=== PATIENT | male | born 1945 | race Caucasian/White ===

== ENCOUNTER 2019-03-16 11:22 | Inpatient (IN) | payer BC ==
[2019-03-16] VITALS (380 sets, daily range): BP systolic 71–120; BP diastolic 37–61; PULSE 89–108; TEMP 94.3–98.8; O2SAT 52–100
[~2019-03-16] VITALS: Ht 180.3 cm; Wt 128.9 kg
--- NOTE | 2019-03-16 12:30 | NUR ---
PT RECEIVED INTUBATED A DIRECT ADMIT FROM [facility]. PT PLACED ON DOCUMENTED SETTINGS FOR INITIAL SETTINGS. ABG/CXR PENDING. OETT RESECURED WITH A HOLISTER 25 @ TEETH. ALARMS SET AND FUNCTIONING
[2019-03-16 12:52] LABS: ARTERIAL BLD GAS O2 SATURATION 99.4 % (92-100); ARTERIAL BLOOD GAS BASE EXCESS -8.8 (-2-2); ARTERIAL BLOOD GAS HCO3 17.8 meq/L (22-26); ARTERIAL BLOOD GAS PCO2 40.5 mmHg (35-45); ARTERIAL BLOOD GAS pH 7.26 (7.35-7.45)
[2019-03-16 12:53] LABS: ARTERIAL BLOOD GAS PO2 343.4 mmHg (80-100)
--- NOTE | 2019-03-16 13:15 | NUR ---
INCREASED VT AT THIS ALONG WITH RR PER DR. NGUYEN AT BEDSIDE. NO OTHER CHANGES AT THIS TIME.
--- NOTE | 2019-03-16 13:40 | NUR ---
Report received from [facility] and pt received via stretcher to ICU 7. Pt moved to bed. Dr Starr, Dr Sky, RT, and AIVS all at bedside. Assessment complete. OG placed and after confirmation was placed. Pt on vent per Dr Starr's settings. Anesthesia called and right radial art line placed. Levophed to start for SBP < 90 or MAP < 65. Temp mukherjee placed. Dr Sky, Dr Starr, and myself spoke with pt's children regarding status update and plan of care. Questions answered and support provided. Will continue to follow.
[2019-03-16 13:44] LABS: HEMOGLOBIN 11.4 g/dl (13.5-18.0); MEAN CELL VOLUME 94 fl (80.0-100.0); MEAN CORPUSCULAR HEMOGLOBIN 30 pg (27.0-31.0); MEAN CORPUSCULAR HGB CONC 32 g/dl (33.0-37.0); MEAN PLATELET VOLUME 11.8 fl (7.4-10.4); PLATELET COUNT 168 K/mm3 (130-400); RED BLOOD COUNT 3.81 M/mm3 (4.20-5.60); REDCELL DISTRIBUTION WIDTH-CV 15.3 % (11.5-14.5)
[2019-03-16 13:47] LABS: HEMATOCRIT 35.7 % (42.0-52.0)
[2019-03-16 13:54] LABS: ALBUMIN 3.6 gm/dL (3.5-5.0); CALCIUM 8.2 mg/dL (8.4-10.2); CREATININE, serum 2.54 (0.66-1.25); MAGNESIUM 1.9 mg/dL (1.6-2.3); PHOSPHOROUS 7.3 mg/dL (2.5-4.5); POTASSIUM 4.2 mmol/L (3.4-5.0); TOTAL PROTEIN 7.2 gm/dL (6.4-8.2)
[2019-03-16 14:05] LABS: TROPONIN-I 0.022 ng/mL (0.000-0.035)
[2019-03-16 14:11] LABS: ANISOCYTOSIS 1+; HYPOCHROMIA 2+; LYMPHOCYTE 7 % (20.0-51.0); NEUTROPHILS 83 % (42.0-75.2); PLATELET ESTIMATE NORMAL (NORMAL)
[2019-03-16 14:24] LABS: MUCOUS Present /lpf; PH 5 (5-8); SQUAMOUS EPITHELIAL 0-2 /hpf; URINE APPEARANCE Hazy; URINE BACTERIA Rare /hpf; URINE BILIRUBIN Negative (NEGATIVE); URINE BLOOD Negative (NEGATIVE); URINE COLOR Yellow; URINE GLUCOSE Negative (NEGATIVE); URINE KETONE Negative (NEGATIVE); URINE LEUKOCYTE ESTERASE Negative (NEGATIVE); URINE NITRATE Negative (NEGATIVE); URINE PROTEIN(semi-quant) 2+ (NEGATIVE); URINE RBC 0-2 /hpf; URINE UROBILINOGEN Negative (NEGATIVE)
[2019-03-16 15:30] LABS: COLLECTION METHOD CLEAN CATCH
--- NOTE | 2019-03-16 15:40 | NUR ---
Dr Raman and Dr Beaver notified of consults.
[2019-03-16] MEDS ORDERED: ASPIRIN E.C. 8181 MG PO (15:58)
[2019-03-16] MEDS ORDERED: VITAMIN D 1001000 IU PO (15:59)
[2019-03-16] MEDS ORDERED: COLACE 100100 MG/CAP PO (16:00)
[2019-03-16] MEDS ORDERED: DIGITEK0.125 MG PO (16:03)
[2019-03-16] MEDS ORDERED: PRINIVIL2.5 MG PO (16:03)
[2019-03-16] MEDS ORDERED: LACRI-LUBE1 OIN OU (16:07)
[2019-03-16] MEDS ORDERED: TOPROL XL 25MG25 MG PO (16:08)
[2019-03-16] MEDS ORDERED: MIRALAX PA17 GM/Dose PO (16:09)
[2019-03-16] MEDS ORDERED: MULTI VITAMINS1 TAB PO (16:10)
[2019-03-16] MEDS ORDERED: K-DUR20 MEQ PO (16:11)
--- NOTE | 2019-03-16 16:11 | NUR ---
Vancomycin Initial Dosing Pharmacy Note Ordering provider: Mio Sky DO Indication/duration: Relevant comorbidities: LABS: est CrCl 34 mL/min Recommendation: 1.5 g IV q24h, follow daily serum creatinine and will follow up with vancomycin trough Loading dose: 1.5 grams Maintenance dose: 1.5 grams every 24 hours Trough goal: 10-15 ug/mL
[2019-03-16] MEDS ORDERED: ZOLOFT 50MG50 MG PO (16:12)
[2019-03-16] MEDS ORDERED: ALDACTONE 25MG25 M1 PO (16:13)
[2019-03-16] MEDS ORDERED: PEPCID 20MG TAB20 MG PO (16:14)
[2019-03-16] MEDS ORDERED: ASMANEX TW0.22 MG/A1 IH (16:14)
[2019-03-16] MEDS ORDERED: LEADER EYE ITCH5 ML OP (16:18)
[2019-03-16] MEDS ORDERED: LASIX 20MG TABL20 MG PO (16:19)
[2019-03-16] MEDS ORDERED: DEMADEX 20MG20 M1 PO (16:21)
[2019-03-16] MEDS ORDERED: NEURONTIN100 MG/CAP PO (16:22)
[2019-03-16] MEDS ORDERED: TYLENOL 500MG500 MG PO (16:23)
[2019-03-16] MEDS ORDERED: PROAIR HFA0.09 MG/AC IH (16:26)
[2019-03-16] MEDS ORDERED: DULCOLAX S10 MG/SUPP RC (16:26)
[2019-03-16] MEDS ORDERED: MILK OF MA400 MG/52 PO (16:28)
[2019-03-16] MEDS ORDERED: MELAT3MGTAB PO (16:28)
[2019-03-16] MEDS ORDERED: ZOFRAN 4MG T4 MG/TAB PO (16:29)
[2019-03-16] MEDS ORDERED: LANTUS100 U/ML SQ (16:31)
[2019-03-16] MEDS ORDERED: BETADINE TP (16:32)
[2019-03-16] MEDS ORDERED: BACTRIM DS 8001 TAB PO (16:32)
[2019-03-16] MEDS ORDERED: NOVLOG SQ (16:34)
--- NOTE | 2019-03-16 17:10 | NUR ---
Dobumatime started at set rate per Dr Raman orders.
[2019-03-16 17:19] LABS: ARTERIAL BLD GAS O2 SATURATION 96.8 % (92-100); ARTERIAL BLD GAS TCO2 CT 18.9; ARTERIAL BLOOD GAS BASE EXCESS -5.8 (-2-2); ARTERIAL BLOOD GAS PCO2 30.5 mmHg (35-45); ARTERIAL BLOOD GAS PO2 95.8 mmHg (80-100); ARTERIAL BLOOD GAS pH 7.39 (7.35-7.45)
--- NOTE | 2019-03-16 17:31 | NUR ---
Rate change made on levophed per weight adjustment.
--- NOTE | 2019-03-16 18:05 | NUR ---
Arterial line wave form was dampened. Entered room for troubleshooting and when stated pt's name, he opened his eyes. Asked pt to open eyes real big, shut, and open again. Pt followed. Asked pt to squeeze my hands and again followed commands with both sides. Asked pt is he was in pain. Shook head no. Explained to pt what had happened and where he was at. Nods he understands. Dr Starr and family updated on changes. Will continue to follow.
--- NOTE | 2019-03-16 19:37 | NUR ---
Report given to Anna REYNA and care transfered.
--- NOTE | 2019-03-16 19:40 | NUR ---
Bedside report received from AXEL Johnson. All lines, tubes, wounds, and medications reviewed. Transfer of care at this time.
--- NOTE | 2019-03-16 19:45 | NUR ---
Patient resting comfortably on the vent. No signs of pain or distress. Patient opens eyes to name and follows commands like squeezing his hands. Patient responds appropriately to yes and no questions. When asked if he is in pain, patient shakes head no. Assessment complete. Patients lungs are clear with diminished bases, he is only having a small amount of secretions when suctioned. HR and rhythm are irregular, normal S1 and S2 heard. Patient is in afib, but appears rate controlled between 80-110bpm. Bowel ssounds are active. Patient is very edematous from the nipple line down. BUE are +2, Hands +3, BLE +3, and scrotum +2. Patient's skin is mottled from the neck up and the knees down. Ears are dark purple is color. Patients legs are cold to the touch. Patient is cool and moist all over as he is weeping from the edema. Patient has open ulcers to his lower legs and feet bilaterally. They are clean with no drainage noted. Patient has scratcches, bruises, and skin tears all over his BUE with varying sizes and locations. Some skin tears are bleeding, others are leaking serous fluids, one large one on right forarm is bandaged and shadowing is seen on the dressing. Patient has multiple abrasions to the top and back of his head, they are scabbed over, but leaking serosanguinous fluid. 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 Patients groin is excoriated and painful to the touch, patient jumps when this area is touched. Patient's pulses are +1 in all extremities with pedal pulses very difficult to find with the right side being worse. Pupils are sluggish. All drips and lines checked and confirmed. Patient has no further needs at this time. Will continue to monitor. Call light within reach.
[2019-03-17] VITALS (735 sets, daily range): BP systolic 83–135; BP diastolic 44–88; PULSE 80–112; TEMP 98.4–98.8; O2SAT 58–100
--- NOTE | 2019-03-17 | NUR ---
Patient resting comfortably on the vent, patient denies any pain. Patient continues to follow commands and responds appropriately to yes/no questions. Assessment complete. No changes from previous exam except that mottling is decreasing and is not as high on his legs. Ears have turned to a more normal red color and are warm to the touch. Patient's vitals have been stable. No further needs at this time. Will continue to monitor.
--- NOTE | 2019-03-17 04:00 | NUR ---
Patient continues to rest comfortably on the vent. Sedation was increased at 0230 for patient comfort and appropriate sedation. He is a little more sleepy than previous exam, but is still responding appropriately and following commands. Assessment complete. Patients mottling has continued to improve and is only present from the ankles down. All other findings remain the same as previous exams. Will continue to monitor.
--- NOTE | 2019-03-17 05:00 | NUR ---
Patient started on sedation vacation at this time. Propofol and fentanyl decreased by half.
[2019-03-17 05:03] LABS: ARTERIAL BLD GAS O2 SATURATION 97.5 % (92-100); ARTERIAL BLD GAS TCO2 CT 18.9; ARTERIAL BLOOD GAS BASE EXCESS -2.7 (-2-2); ARTERIAL BLOOD GAS HCO3 18.3 meq/L (22-26); ARTERIAL BLOOD GAS PO2 101.8 mmHg (80-100); ARTERIAL BLOOD GAS pH 7.53 (7.35-7.45)
[2019-03-17 05:04] LABS: ARTERIAL BLOOD GAS PCO2 22.2 mmHg (35-45)
[2019-03-17 05:31] LABS: BASO # 0.1 (0.0-0.2); BASO % 0.7 % (0.0-2.0); EOS # 0.1 (0.0-0.7); EOS % 1.2 % (0-4.0); GRAN # 6.6 (1.4-6.5); GRAN % 76.5 % (42.2-75.2); HEMATOCRIT 29.4 % (42.0-52.0); LYMPH % 12.1 % (20.0-51.0); MEAN CELL VOLUME 89 fl (80.0-100.0); MEAN CORPUSCULAR HEMOGLOBIN 30 pg (27.0-31.0); MEAN CORPUSCULAR HGB CONC 34 g/dl (33.0-37.0); MEAN PLATELET VOLUME 11.5 fl (7.4-10.4); MONO # 0.8 (0.1-0.6); MONO % 8.9 % (1.7-9.3); PLATELET COUNT 135 K/mm3 (130-400); REDCELL DISTRIBUTION WIDTH-CV 15.4 % (11.5-14.5)
[2019-03-17 05:41] LABS: ALBUMIN 2.8 gm/dL (3.5-5.0); BILIRUBIN,TOTAL 0.7 mg/dL (0.0-1.0); CALCIUM 7.6 mg/dL (8.4-10.2); CREATININE, serum 2.57 (0.66-1.25); MAGNESIUM 1.6 mg/dL (1.6-2.3); PHOSPHOROUS 4.7 mg/dL (2.5-4.5); POTASSIUM 4.5 mmol/L (3.4-5.0); TOTAL PROTEIN 6.1 gm/dL (6.4-8.2)
[2019-03-17 06:01] LABS: CREATININE, serum 2.57 (0.66-1.25)
[2019-03-17 06:04] LABS: URINE PROTEIN:CREAT RATIO 2.45 (0.00-0.14)
[2019-03-17 06:17] LABS: FRACTIONAL EXCRETION OF NA+ 2.6 %
--- NOTE | 2019-03-17 06:17 | NUR ---
@ 0505 CALLED [facility] ABOUT PTS ABG RESULTS, WITH A LOW CO2. [facility] CALLED WITH NEW ORDERS AND VENT CHANGES WERE DONE AT 0530, RATE FROM 22 TO 16, FI02 FROM 40% TO 35%.
--- NOTE | 2019-03-17 07:00 | NUR ---
Dobutamine gtt infusing through peripheral left anticubital IV - MD Matty in room and aware - gtt paused/discontinued per MD Matty Left anticubital IV site without complications
--- NOTE | 2019-03-17 07:25 | NUR ---
patient's propofol and fentanyl stopped at this time per Dr. Starr to prepare for possible extubation.
--- NOTE | 2019-03-17 07:27 | NUR ---
All sedation off per EZRA Starr MD who's at bedside. RT at bedside as well All linens changed at this time and pt turned Pt Alert to simuli, following commands. When pt asked how he is doing - pt shakes head back and forth nonverbal communication its ascertained that pt thinks he is not doing well. Education provided on discontinued sedation in attempt to extubate - pt nods head in agreement No family present at this time
--- NOTE | 2019-03-17 07:30 | NUR ---
Bedside report given to AXEL Fournier. All Lines, medications, and tubes confirmed. Transfer of care at this time.
[2019-03-17 08:46] LABS: ARTERIAL BLD GAS O2 SATURATION 95.7 % (92-100); ARTERIAL BLOOD GAS BASE EXCESS -4.1 (-2-2); ARTERIAL BLOOD GAS HCO3 19.1 meq/L (22-26); ARTERIAL BLOOD GAS PCO2 29.7 mmHg (35-45); ARTERIAL BLOOD GAS PO2 84.4 mmHg (80-100); ARTERIAL BLOOD GAS pH 7.43 (7.35-7.45)
--- NOTE | 2019-03-17 08:55 | NUR ---
Pt extubated to Oxymask at 5L/min - pt tolerated well Pt AOx3
--- NOTE | 2019-03-17 10:46 | NUR ---
PT EXTUBATED TO A OXYMASK AT 5L O2 ORDERED BY DR HEARD. PT SUCTIONED VIA ETT AND HUMAN RESOURCE ADVISOR SUCTIONED PRE EXTUBATION. LITTLE PROCEDURE WELL. BLBS CLEAR AND EQUAL. NO STRIDOR NOTED. PT ABLE TO SPEAK. VSS AT HR 94 RR 18 SPO2 100%. NO DISTRESS NOTED AT THIS TIME.
--- NOTE | 2019-03-17 11:57 | NUR ---
CARLA met with the patient and patient's son, Rodrigo (ph#[phone]), to discuss discharge plan. The patient lives in [place], but has been residing at [facility] for a skilled stay. The patient and his son could not recall his PCP's name, but report that he receives primary care at the [facility] and he is apart of the [employer]. The patient does not have advanced directives in EMR, but his son reports that the patient does have them completed. He states that [facility] should have a copy and that him and his sister, Gila, are the patient's DPOA-HC. The patient's son reports that the plan is for the patient to return back to [facility] upon discharge. He states that him and his sister are considering transfering the patient to a [facility] contracted facility in [place] in the future. CARLA presented and explained the Patient Choice Form to the patient's son. The patient's son verbalized understanding, signed, and he was provided a copy. CARLA contacted and faxed updates to Wendy at [facility]. CARLA also requested a copy of his DPOA-HC. Wendy reports that she will fax a copy to the hospital. CARLA to continue to follow to ensure a safe discharge.
--- NOTE | 2019-03-17 20:00 | NUR ---
PATIENT ASSESSED, VITALS STABLE. WILL CONTINUE TO MONITOR.
[2019-03-18] VITALS (811 sets, daily range): BP systolic 99–122; BP diastolic 59–85; PULSE 99–139; TEMP 97.7–98.9; O2SAT 63–100
--- NOTE | 2019-03-18 02:40 | NUR ---
DOBUTAMINE DECREASED PER ORDERS FROM DR. STAPLES DUE TO TACHYCARDIA.
[2019-03-18 05:10] LABS: ARTERIAL BLD GAS O2 SATURATION 52.9 % (92-100); ARTERIAL BLD GAS TCO2 CT 25.6; ARTERIAL BLOOD GAS BASE EXCESS -0.6 (-2-2); ARTERIAL BLOOD GAS HCO3 24.3 meq/L (22-26); ARTERIAL BLOOD GAS PCO2 40.9 mmHg (35-45); ARTERIAL BLOOD GAS pH 7.39 (7.35-7.45)
[2019-03-18 05:16] LABS: ARTERIAL BLOOD GAS PO2 29.8 mmHg (80-100)
[2019-03-18 05:28] LABS: BASO % 0.7 % (0.0-2.0); EOS # 0.1 (0.0-0.7); EOS % 2.2 % (0-4.0); GRAN # 4.5 (1.4-6.5); GRAN % 77.7 % (42.2-75.2); LYMPH # 0.6 (1.2-3.4); LYMPH % 9.8 % (20.0-51.0); MEAN CELL VOLUME 90 fl (80.0-100.0); MEAN CORPUSCULAR HGB CONC 33 g/dl (33.0-37.0); MEAN PLATELET VOLUME 11.3 fl (7.4-10.4); MONO # 0.5 (0.1-0.6); MONO % 9.1 % (1.7-9.3); PLATELET COUNT 76 K/mm3 (130-400); RED BLOOD COUNT 3.11 M/mm3 (4.20-5.60); REDCELL DISTRIBUTION WIDTH-CV 15.7 % (11.5-14.5)
[2019-03-18 05:30] LABS: HEMOGLOBIN 9.1 g/dl (13.5-18.0); MEAN CORPUSCULAR HEMOGLOBIN 29 pg (27.0-31.0)
[2019-03-18 05:42] LABS: CALCIUM 8.4 mg/dL (8.4-10.2); CREATININE, serum 2.95 (0.66-1.25); MAGNESIUM 2.1 mg/dL (1.6-2.3); POTASSIUM 4.3 mmol/L (3.4-5.0)
[2019-03-18 05:54] LABS: ARTERIAL BLD GAS TCO2 CT 22.6; ARTERIAL BLOOD GAS BASE EXCESS -2.3 (-2-2); ARTERIAL BLOOD GAS HCO3 21.6 meq/L (22-26); ARTERIAL BLOOD GAS PCO2 33.8 mmHg (35-45); ARTERIAL BLOOD GAS PO2 98.4 mmHg (80-100); ARTERIAL BLOOD GAS pH 7.42 (7.35-7.45)
[2019-03-18 10:24] LABS: INR 1.3 (0.8-3.0); PROTHROMBIN TIME 15.4 SECONDS (9.7-12.8)
--- NOTE | 2019-03-18 21:00 | NUR ---
Patient assessed, vitals stable. Complaining of sternal and stomach pain, states he has had it all day. RN offered tylenol when he's able to have it, patient accepted. Will continue to monitor.
[2019-03-19] VITALS (533 sets, daily range): BP systolic 92–129; BP diastolic 57–97; PULSE 102–126; TEMP 97.8–98.8; O2SAT 78–100
[2019-03-19 05:23] LABS: MEAN CELL VOLUME 91 fl (80.0-100.0); MEAN CORPUSCULAR HEMOGLOBIN 30 pg (27.0-31.0); MEAN CORPUSCULAR HGB CONC 33 g/dl (33.0-37.0); MEAN PLATELET VOLUME 11.4 fl (7.4-10.4); PLATELET COUNT 72 K/mm3 (130-400); RED BLOOD COUNT 3.35 M/mm3 (4.20-5.60); REDCELL DISTRIBUTION WIDTH-CV 15.5 % (11.5-14.5)
[2019-03-19 05:27] LABS: ARTERIAL BLD GAS O2 SATURATION 97.4 % (92-100); ARTERIAL BLD GAS TCO2 CT 24.7; ARTERIAL BLOOD GAS BASE EXCESS -0.5 (-2-2); ARTERIAL BLOOD GAS HCO3 23.6 meq/L (22-26); ARTERIAL BLOOD GAS PCO2 36.9 mmHg (35-45); ARTERIAL BLOOD GAS PO2 102.6 mmHg (80-100); ARTERIAL BLOOD GAS pH 7.42 (7.35-7.45)
[2019-03-19 05:31] LABS: INR 1.2 (0.8-3.0); PROTHROMBIN TIME 14.6 SECONDS (9.7-12.8)
[2019-03-19 05:32] LABS: HEMATOCRIT 30.5 % (42.0-52.0)
[2019-03-19 05:40] LABS: ALBUMIN 3.2 gm/dL (3.5-5.0); CALCIUM 8.3 mg/dL (8.4-10.2); CREATININE, serum 2.44 (0.66-1.25); MAGNESIUM 2.1 mg/dL (1.6-2.3); PHOSPHOROUS 4.1 mg/dL (2.5-4.5); POTASSIUM 4.1 mmol/L (3.4-5.0); TOTAL PROTEIN 6.7 gm/dL (6.4-8.2)
[2019-03-19 05:47] LABS: BAND 1 % (0-10); EOSINOPHIL 2 % (0-4); LYMPHOCYTE 6 % (20.0-51.0); NEUTROPHILS 82 % (42.0-75.2); PLATELET ESTIMATE DECREASED (NORMAL)
--- NOTE | 2019-03-19 08:30 | NUR ---
Pt AAOx2 - much more confused than yesterday. Pt no longer remembers situation and location - yesterday pt was oriented Pt's son at bedside expressing concern for sudden confusion Pt is able to correctly identify son by name and that he is his son Pt c/o abdominal pain/tightness - on assessment abdomen distended/baseline, soft/moderate on palpation, fluid/edema presnent, pt belching without relief - tums/zofran/fentanyl provided In past 36hrs pt has had 7 moderate-large sized bowelmovements
--- NOTE | 2019-03-19 13:00 | NUR ---
Report phoned to AXEL Whittington - questions invited and answered Pt transfered to Medical bed via slideboard then transported to medical 312 with TRINY'stan Welch on O2 via NC without complications
--- NOTE | 2019-03-19 19:45 | NUR ---
Initial shift assessment done- Tele on afib, rate variable 116-130, pt states in pain- abd pain /, will give fentanyl IV as ordered to see if can get pt comfortable-open area to right heel coverd with heel pad and cushion boots put on patient, repositioned, pt remains confused but pleasant.
--- NOTE | 2019-03-19 19:54 | NUR ---
Pt arrived to medical floor room 312 by AXEL Fournier and Shi Carroll at 1330. Pt on 2L NC. Resting in bed most of afternoon. Pt refused food this afternoon. C/o of abdominal pain, feeling bloated. Pt had one episode of nause, zofran administered. Pt had minimal brown emesis. Pt apologized a bunch of times. per patient "might be from milk". Was reported he had a milkshake at some point. Pt has scattered bruising, scabs, skin tears noted on BLE and BUE. RFA wrapped with kerlex covering skin tear. LUE wrapped with samy bandage covering skin tear. Top of head has multiple scabs. Generalized edema noted all over. Abdomen is firm. BLE noted to have erythema, dry, scaling. Pedal pulses difficult to palpate. Scrotum noted to have swelling and some wheeping. Pt has RADHA PICC, flushes well with good blood return. Bailey in place draining yellow urine, no kinks.Pt voices no other concerns at this time. Call light within reach, bed alarm on.
--- NOTE | 2019-03-19 21:45 | NUR ---
Tel remains afib, rate still 110-130,s--Dr Parker informed of rate- states to continue to monitor and let cardiology know in the morning-
--- NOTE | 2019-03-19 22:00 | NUR ---
Vomited moderate amount of brown emesis all over gown- cleaned up, new sheets, gown, and dressing changed to R/FA skin tear-- also new samy wrap to PICC line. Has significant scrotal edema- elevated on towel
[2019-03-20 04:00] VITALS: BP 102/53; BP 86/34; PULSE 109; TEMP 98.9
--- NOTE | 2019-03-20 06:10 | NUR ---
Has had 3-4 small brown emesis during the shift- nauseated,, given Zofran at this time- did have Compazine earlier in the shift. Did not sleep much, on 3L/nc, tele afib 108-120,s-
[2019-03-20 06:18] LABS: BASO # 0.1 (0.0-0.2); BASO % 0.5 % (0.0-2.0); EOS # 0.1 (0.0-0.7); GRAN # 10.6 (1.4-6.5); GRAN % 83.9 % (42.2-75.2); HEMOGLOBIN 10.9 g/dl (13.5-18.0); LYMPH # 0.6 (1.2-3.4); MEAN CELL VOLUME 92 fl (80.0-100.0); MEAN CORPUSCULAR HEMOGLOBIN 30 pg (27.0-31.0); MEAN CORPUSCULAR HGB CONC 32 g/dl (33.0-37.0); MEAN PLATELET VOLUME 11.6 fl (7.4-10.4); MONO # 1.2 (0.1-0.6); MONO % 9.2 % (1.7-9.3); PLATELET COUNT 113 K/mm3 (130-400); RED BLOOD COUNT 3.66 M/mm3 (4.20-5.60); REDCELL DISTRIBUTION WIDTH-CV 15.8 % (11.5-14.5)
[2019-03-20 06:20] LABS: HEMATOCRIT 33.6 % (42.0-52.0)
[2019-03-20 06:28] LABS: ALBUMIN 3.2 gm/dL (3.5-5.0); BILIRUBIN,TOTAL 1.7 mg/dL (0.0-1.0); CALCIUM 8.6 mg/dL (8.4-10.2); CREATININE, serum 1.85 (0.66-1.25); MAGNESIUM 2.1 mg/dL (1.6-2.3); POTASSIUM 4.3 mmol/L (3.4-5.0); TOTAL PROTEIN 6.7 gm/dL (6.4-8.2)
[2019-03-20 06:47] LABS: INR 1.2 (0.8-3.0); PROTHROMBIN TIME 14.3 SECONDS (9.7-12.8)
[2019-03-20 08:00] VITALS: BP 107/63; PULSE 125
[2019-03-20 11:17] VITALS: BP 116/62; PULSE 128; TEMP 97.8
[2019-03-20 15:41] VITALS: BP 103/55; PULSE 118; TEMP 98.4
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
[2019-03-20 20:00] VITALS: BP 111/76; PULSE 108; TEMP 98.4
--- NOTE | 2019-03-20 20:30 | NUR ---
Initial shift assessment done- alert/confused, pleasant, denies pain, denies nausea at this time, resting calmly in bed- repositioned, did have very small amount of liquid green stool- cleaned up- o2 at 2L/nc, tele on-afib, rate 108-130, stays mostly in 110-118. Continues with trunk, scrotal edema, generalized edema- Bailey with clear yellow urine
[2019-03-21 00:11] VITALS: BP 107/66; PULSE 124; TEMP 98
[2019-03-21 03:58] VITALS: BP 114/78; PULSE 86; TEMP 98.3
--- NOTE | 2019-03-21 05:29 | NUR ---
No emesis, denies nausea this shift- only had that small liquid stool at start of shift- no more throughout shift, seems more alert/still remains confused but asking more appropriate questions- "what happened to me, to end up in the hospital?", Tele remains afib but overall the rate better 90-120, stayed around 90-110 most the shift.
[2019-03-21 06:52] LABS: BASO # 0.1 (0.0-0.2); BASO % 0.5 % (0.0-2.0); EOS # 0.2 (0.0-0.7); EOS % 1.8 % (0-4.0); GRAN # 9.3 (1.4-6.5); GRAN % 82.9 % (42.2-75.2); HEMOGLOBIN 10.4 g/dl (13.5-18.0); LYMPH # 0.6 (1.2-3.4); LYMPH % 5.6 % (20.0-51.0); MEAN CELL VOLUME 94 fl (80.0-100.0); MEAN CORPUSCULAR HEMOGLOBIN 30 pg (27.0-31.0); MEAN CORPUSCULAR HGB CONC 32 g/dl (33.0-37.0); MEAN PLATELET VOLUME 12.1 fl (7.4-10.4); MONO % 8.8 % (1.7-9.3); PLATELET COUNT 99 K/mm3 (130-400); RED BLOOD COUNT 3.53 M/mm3 (4.20-5.60)
[2019-03-21 07:12] LABS: ALBUMIN 3.2 gm/dL (3.5-5.0); BILIRUBIN,TOTAL 1.3 mg/dL (0.0-1.0); CALCIUM 8.7 mg/dL (8.4-10.2); CREATININE, serum 1.7 (0.66-1.25); POTASSIUM 4.2 mmol/L (3.4-5.0); TOTAL PROTEIN 6.8 gm/dL (6.4-8.2)
[2019-03-21 07:19] VITALS: BP 103/66; PULSE 94; TEMP 98.3
[2019-03-21 11:31] VITALS: BP 102/56; PULSE 101; TEMP 97.7
--- NOTE | 2019-03-21 13:24 | NUR ---
Pt assessment completed and charted, morning medications administered per SEP. Pt alert and partially oriented. Pt oriented to name, year, president and place. Forgetful at times. Still trying to "understand situation". Pt up to chair with therapy. Pt used walker, heavy 2 assist, still unsteady on feet, only took a couple of steps. Pt denies abdominal pain. Pt has had no episodes of vomiting. RADHA PICC in place, flushing well with good blood return. Pt denies chest pain, states some dizziness when he stood. Generalized edema over lower extremities, abdomen, scrotum. Pt h as mukherjee in place draining shalom urine w/ sediment, no kinks in tubing. Jagruti care provided. No other concerns voiced at this time. Call light within reach.
[2019-03-21 16:00] VITALS: BP 114/79; PULSE 102; TEMP 97.8
--- NOTE | 2019-03-21 18:33 | NUR ---
Pt had better day. In and out of confusion. Pt got a little upset towards end of shift about who passed a few months ago. Son stopped in for visit. Pt tolerating foods and liquids well. No concerns voiced at this time.
[2019-03-21 19:47] VITALS: BP 88/47; PULSE 106; TEMP 98.3
--- NOTE | 2019-03-21 21:10 | NUR ---
Shift assessment complete. Pt resting in bed, awake, alert, oriented to person/ place c underlying confusion noted. Pt denies pain or other c/o. PICC noted to upper R arm, patent c good blood return. Pt denies needs at this time. Call light in reach, bed alarm on. Will continue to monitor.
[2019-03-22] VITALS (7 sets, daily range): BP systolic 116–124; BP diastolic 62–85; PULSE 71–137; TEMP 97.5–98.7
[2019-03-22 05:58] LABS: BASO # 0.1 (0.0-0.2); BASO % 0.7 % (0.0-2.0); EOS # 0.3 (0.0-0.7); GRAN # 8.7 (1.4-6.5); GRAN % 80.3 % (42.2-75.2); HEMOGLOBIN 10.2 g/dl (13.5-18.0); LYMPH # 0.8 (1.2-3.4); LYMPH % 6.9 % (20.0-51.0); MEAN CELL VOLUME 92 fl (80.0-100.0); MEAN CORPUSCULAR HEMOGLOBIN 30 pg (27.0-31.0); MEAN CORPUSCULAR HGB CONC 32 g/dl (33.0-37.0); MEAN PLATELET VOLUME 11.7 fl (7.4-10.4); MONO # 0.9 (0.1-0.6); MONO % 8.5 % (1.7-9.3); PLATELET COUNT 101 K/mm3 (130-400); RED BLOOD COUNT 3.41 M/mm3 (4.20-5.60); REDCELL DISTRIBUTION WIDTH-CV 15.9 % (11.5-14.5)
[2019-03-22 06:00] LABS: HEMATOCRIT 31.5 % (42.0-52.0)
[2019-03-22 06:09] LABS: CALCIUM 8.6 mg/dL (8.4-10.2); CREATININE, serum 1.69 (0.66-1.25); POTASSIUM 4.3 mmol/L (3.4-5.0)
--- NOTE | 2019-03-22 06:58 | NUR ---
Pt resting in bed, condition uchanged. Pt had an uneventfull night c very few needs. No needs at this time. Report given to Lacie REYNA to assume pt cares.
--- NOTE | 2019-03-22 08:30 | NUR ---
Assessment complete. Pt sitting up in bed, alert and oriented to person and city, unsure of current building and situation. Pt denies pain at this time. O2 at 2 L/min via NC. PICC line to right upper arm without s/s of complications. Abd distended. Taut edema across body including scrotum. Bailey catheter to DD with shalom urine with sediment noted. Scabbing to middle chest and top of head. Skin tear to right forearm with dressing CDI. No further needs reported. Call light in reach.
--- NOTE | 2019-03-22 14:19 | NUR ---
SW met with patient to follow up about discharge plan. Patient reports he will return to [facility] in [place]. CARLA contacted Maria Luisa from [facility] and faxed updates. CARLA will continue to follow.
--- NOTE | 2019-03-22 17:30 | NUR ---
Pt assisted to sit up in bed for supper, denies pain or needs. Pt's daughter just left and reports pt's confusion increasing at this time. Confusion has been intermittent throughtout the shift. Call light in reach. Bed alarm on.
--- NOTE | 2019-03-22 20:45 | NUR ---
Patient assessed at this time. Alert and oriented, with confusion. Easily redirected. Denies having pain and discomfort. Double lumen PICC to RUE, each lumen flushed. Site is without redness, warmth, swelling, and pain. Denies SOB and dyspnea. On oxygen at 2 L/min via NC. LS CTA upper lobes, diminished lower lobes. Heart with irregular rhythm. Telemetry in place. Capillary refill less than 3 seconds. Non-tenting skin turgor. BSAx4. Abdomen soft and non-tender. Catheter had been D/C'd on previous shift. Has been incontinent. Pericare provided by staff. Patient has multiple scabs to top of head, and BUE. Skin tears to right foream-dressing CDI, and right hand, CARRIAGE DOGGER. Vacular like ulcers to right beauchamp (two), and one to left 2nd toe. BLE scaling/flaking. Mepilex to right heel CDI. Coccyx reddened, but blanchable. 2+ edema to BUE and BLE. Generalized edema. Edema to genetalia. Voices no questions, needs, or concerns at this time. Call light is within reach.
[2019-03-23] VITALS (10 sets, daily range): BP systolic 100–118; BP diastolic 55–79; PULSE 81–115; TEMP 97.4–98.1
--- NOTE | 2019-03-23 04:23 | NUR ---
Patient has been resting in bed with eyes closed. Staff provides changing, joanne care, and repositioning. Has been NPO since midnight. Voices no questions, needs, or concerns at this time. Call light is within reach.
[2019-03-23 06:49] LABS: BASO # 0.1 (0.0-0.2); BASO % 0.7 % (0.0-2.0); EOS # 0.3 (0.0-0.7); EOS % 3.5 % (0-4.0); GRAN # 6.5 (1.4-6.5); GRAN % 77.2 % (42.2-75.2); HEMATOCRIT 31.1 % (42.0-52.0); HEMOGLOBIN 9.9 g/dl (13.5-18.0); LYMPH # 0.7 (1.2-3.4); LYMPH % 8.7 % (20.0-51.0); MEAN CELL VOLUME 93 fl (80.0-100.0); MEAN CORPUSCULAR HEMOGLOBIN 30 pg (27.0-31.0); MEAN CORPUSCULAR HGB CONC 32 g/dl (33.0-37.0); MEAN PLATELET VOLUME 12.3 fl (7.4-10.4); MONO # 0.8 (0.1-0.6); MONO % 9.3 % (1.7-9.3); PLATELET COUNT 109 K/mm3 (130-400); RED BLOOD COUNT 3.33 M/mm3 (4.20-5.60); REDCELL DISTRIBUTION WIDTH-CV 15.9 % (11.5-14.5)
[2019-03-23 07:07] LABS: CALCIUM 8.6 mg/dL (8.4-10.2); CREATININE, serum 1.58 (0.66-1.25); POTASSIUM 4.4 mmol/L (3.4-5.0)
--- NOTE | 2019-03-23 08:00 | NUR ---
Assessment complete. Pt resting in bed, A&O x 2, answering some questions appropriately. Breath sounds with expiratory wheeze in upper lobes. O2 at 4 L/min via NC. Abd distended. Generalized taut edema including to scrotum. Pt reports tenderness in back to palpation. Scabbing to top of head and middle chest. Skin tear to right forearm with dressing CDI. PICC line to right upper arm without s/s of complications. Pt incontinent of large amount of urine, not wanting to roll to change linens. Pt assisted from bed to chair with assist x 3, shuffled gait, unable to bear weight for an extended time. No further needs reported. Call light in reach.
--- NOTE | 2019-03-23 08:35 | NUR ---
Pt assisted from recliner chair to WC with assist x 4 and walker, pt unsteady, not standing straight, able to shuffle feet slightly to get to WC. Pt to [facility] for testing.
--- NOTE | 2019-03-23 11:28 | NUR ---
CARLA spoke with hospitalists. Patient may discharge tomorrow back to [facility]. CARLA updated Maria Luisa from [facility] and will fax updates.
--- NOTE | 2019-03-23 12:30 | NUR ---
PICC intact right upper arm with sterile dressing change done with insertion site cleansed with chloraprep x 1, chlorhexidine impregnated disk applied, skin prep, stat lock, and tegaderm applied. no signs or symptoms of IV complications noted. no concerns voiced. re-wrapped with samy to protect catheter.
--- NOTE | 2019-03-23 19:19 | NUR ---
Pt assisted from chair to bed with assist x 3. Pt had large amount of incontinent urine, cleansed and linens changed. Pt has been very sleepy this afternoon, not alert enough to eat or drink until this evening. Spoke with pt's son for consent for the heart cath tomorrow. No further needs reported. Call light in reach.
--- NOTE | 2019-03-23 19:40 | NUR ---
Patient assessed at this time. Alert and oriented with confusion on situation. Easily redirected, but forgetful. Denies having pain and discomfort. Double lumen PICC to right upper arm. Flushed. Site is without redness, warmth, swelling, and pain. Complains of SOB with exertion. On oxygen at 4 L/min via NC. LS CTA upper lobes, diminished lower lobes. Heart rate irregular. Telemetry in place. Capillary refill less than 3 seconds. Non-tenting skin turgor. BSAx4. Abdomen soft and non-tender. 2+ edema BLE and BUE. Generalized edema, and edema to genetalia. Incontinent of urine, and staff provides check, change, joanne care, and repositioning during rounds. Multiple skin issues: Sacrum red, but blanchable; BLE, heels, and feet scaling/flaking; venous ulcers to right beauchamp and left 2nd toe; skin tears to right forearm and right hand; abrasion to chest. Denies pain and discomfort to areas. Reminded of being NPO after midnight for heart cath tomorrow. Voices understanding. Voices no other questions, needs, or concerns at this time. Call light is within reach.
[2019-03-24] VITALS (131 sets, daily range): BP systolic 76–122; BP diastolic 48–80; PULSE 68–136; TEMP 97–97.7; O2SAT 58–100
[2019-03-24 06:24] LABS: BASO # 0.1 (0.0-0.2); BASO % 0.7 % (0.0-2.0); EOS # 0.3 (0.0-0.7); EOS % 3.6 % (0-4.0); GRAN # 6.8 (1.4-6.5); GRAN % 78.3 % (42.2-75.2); HEMOGLOBIN 10.2 g/dl (13.5-18.0); LYMPH # 0.6 (1.2-3.4); LYMPH % 7.1 % (20.0-51.0); MEAN CELL VOLUME 93 fl (80.0-100.0); MEAN CORPUSCULAR HEMOGLOBIN 30 pg (27.0-31.0); MEAN CORPUSCULAR HGB CONC 32 g/dl (33.0-37.0); MEAN PLATELET VOLUME 11.5 fl (7.4-10.4); MONO # 0.8 (0.1-0.6); MONO % 9.4 % (1.7-9.3); PLATELET COUNT 123 K/mm3 (130-400); RED BLOOD COUNT 3.46 M/mm3 (4.20-5.60); REDCELL DISTRIBUTION WIDTH-CV 15.9 % (11.5-14.5)
[2019-03-24 06:32] LABS: INR 1.2 (0.8-3.0)
[2019-03-24 06:34] LABS: PARTIAL THROMBOPLASTIN TIME 32.3 SECONDS (26.0-37.0)
[2019-03-24 06:36] LABS: CALCIUM 8.5 mg/dL (8.4-10.2); CREATININE, serum 1.49 (0.66-1.25); MAGNESIUM 1.9 mg/dL (1.6-2.3); POTASSIUM 4.3 mmol/L (3.4-5.0)
--- NOTE | 2019-03-24 07:14 | NUR ---
Patient has denied having pain and discomfort this shift. Staff has provided check, change, perineal hygiene care, and repositioning during rounds. Resting in bed with call light within reach.
--- NOTE | 2019-03-24 10:47 | NUR ---
SEE MERGE REPORT FOR MEDICATION ADMINISTRATION TIMES WELL INTRA/POST SEDATION ASSESMENTS. UNABLE TO PALPATE FEMORAL OR RADIAL PULSES. BP 70/46. DR WATT NOTIFIED AND OK TO PROCEED WITH [facility].
--- NOTE | 2019-03-24 11:45 | NUR ---
Pt transported via stretcher to ICU 6 with Zoll monitor and oxygen at 3L per Oxymask. Bedside report to Ayana REYNA. Groin site stable, distal pulses present per doppler.
--- NOTE | 2019-03-24 16:07 | NUR ---
Report called to Gema REYNA. Will transfer to medical floor
--- NOTE | 2019-03-24 16:45 | NUR ---
Patient recieved back from ICU after going there post cardiac cath, for low blood pressure. Patient warm and pink, pedal pulses with dopler, right groind dressing clean, dry and intact with no hematoma. Patient now on room air. IV fluids discontinued prior to arrival from ICU.
--- NOTE | 2019-03-24 20:10 | NUR ---
Patient assessed at this time. Alert and oriented to self. Easily reorients to time, place, and situation, but is easily forgetful. Only recalls bits and pieces of information. Double lumen PICC to RUE. Both lumens flushed. Site is without redness, warmth, swelling, and pain. Dressing to areas is CDI. Denies having pain and discomfort. Denies having SOB and dyspnea. Currently on room air. LS CTA. Respirations even and unlabored. Telemetry monitoring in place. Heart with irregular rate/rhythm. BSAx4. Abdomen soft and non-tender. Dressing to right groin site is CDI. Site is without redness, warmth, swelling, and pain. Doppler used for pedal pulses due to 3+ edema BLE. Voices no questions, needs, or concerns at this time. Resting in bed. Call light is within reach.
[2019-03-25] VITALS (9 sets, daily range): BP systolic 95–117; BP diastolic 48–89; PULSE 64–112; TEMP 97.7–98.9
--- NOTE | 2019-03-25 00:43 | NUR ---
During rounds, patient was incontinent of BM. Incontinent cares provided. Noted bleeding to coccyx area while cares were provided. Barrier cream applied. Repositioned off bottom.
--- NOTE | 2019-03-25 01:48 | NUR ---
Telemetry called and stated that patient's HR was going from 120s-140s. Notified IGNITION MECHANIC, who contacted. Dr. Lorenz. EKG obtained. New order received to give Lopressor 12.5mg. Given half a 25 mg tab Lopressor per orders.
--- NOTE | 2019-03-25 05:38 | NUR ---
After giving Metoprolol, patient's HR has been 90s-120s. Denies having pain and discomfort. Staff continues to check, change, and reposition. Jagruti care provided. No further bleeding noted to coccyx at this time. Dressing to heart cath site to right groin is CDI. Resting in bed with eyes closed at this time. Call light is within reach.
[2019-03-25 06:01] LABS: BASO # 0.1 (0.0-0.2); BASO % 0.6 % (0.0-2.0); EOS # 0.3 (0.0-0.7); EOS % 2.8 % (0-4.0); GRAN # 7.7 (1.4-6.5); GRAN % 79.4 % (42.2-75.2); HEMATOCRIT 32.2 % (42.0-52.0); HEMOGLOBIN 10.3 g/dl (13.5-18.0); LYMPH # 0.8 (1.2-3.4); LYMPH % 7.9 % (20.0-51.0); MEAN CELL VOLUME 91 fl (80.0-100.0); MEAN CORPUSCULAR HEMOGLOBIN 29 pg (27.0-31.0); MEAN CORPUSCULAR HGB CONC 32 g/dl (33.0-37.0); MEAN PLATELET VOLUME 11.4 fl (7.4-10.4); MONO # 0.8 (0.1-0.6); MONO % 8.6 % (1.7-9.3); PLATELET COUNT 159 K/mm3 (130-400); RED BLOOD COUNT 3.53 M/mm3 (4.20-5.60); REDCELL DISTRIBUTION WIDTH-CV 16.1 % (11.5-14.5)
[2019-03-25 06:14] LABS: CALCIUM 8.5 mg/dL (8.4-10.2); CREATININE, serum 1.35 (0.66-1.25); DIGOXIN 0.7 ng/mL (0.8-2.0); POTASSIUM 4.5 mmol/L (3.4-5.0)
--- NOTE | 2019-03-25 10:33 | NUR ---
Pt assessment complete. Pt is A/O x3 but has confusion the duration of my assessment. Pt denies any pain at this time, but is clearly uncomfortable when rolling in bed. Pt incontinent of urine and stool, pericare and linen change provided. Pt excoriated to groin, barrier cream applied. 1L O2 via NC placed to patient to assist with SOB, pt unable to catch his breath after bed change. Breakfast ordered for patient. No needs at this time. Call light within reach, will continue to monitor.
--- NOTE | 2019-03-25 11:47 | NUR ---
[facility] could not transport patient over the weekend. They report they will be able to transport the patient on Wednesday and can accept upn dc 03/27/2019
--- NOTE | 2019-03-25 19:10 | NUR ---
Pt resting with HOB elevated. Pt is alert and pleasantly confused. No distress noted. Respirations are even, but pt is dyspneic with exertion. Crackles in Bilateral lung bases. O2@1L- Spo2 97% but desats with movement. Cough. Abdomen is very distended. BS hypoactive. Pt is incontinent- brief in place. Scrotum is very edematous and excoriated. Saccrum is also reddened. BLE 2+ pitting edema- skaling and falky. Mepilex to R heel. Skin tear to bilateral arms- covered with Mepilex. Scabs noted to chest and top of head. R groin cath site clean dry and intact with guaze and tegaderm- soft around site. Pt denies pain. Will continue to monitor.
--- NOTE | 2019-03-25 19:17 | NUR ---
Pt had intermittent confusion through the day. Continued to have incontinent bowels, pt in pain with pericare d/t excoriation. Pt able to eat without issues. On O2 for comfort and SOB with turning. No needs at this time. Call light within reach. Report given to AXEL Brito.
[2019-03-26] VITALS (7 sets, daily range): BP systolic 87–116; BP diastolic 51–76; PULSE 53–111; TEMP 97.4–98
--- NOTE | 2019-03-26 04:00 | NUR ---
Pt was incontinent of bowel and urine. Cleaned and linens changed. Shear tear on L inner buttock is now bleeding. Covered with a Mepilex. Pt turned.
--- NOTE | 2019-03-26 05:36 | NUR ---
Route Salesperson called to notify of pt having 7 beat run of VT. Pt was sleeping when entering the room. Asymptomatic when awoken. VSS. commercial drone pilot did morning EKG, which is consistent with previous EKGs. Marianela DONALD alerted. Labs ordered. Will continue to monitor.
[2019-03-26 06:49] LABS: BASO # 0.1 (0.0-0.2); BASO % 0.6 % (0.0-2.0); EOS # 0.3 (0.0-0.7); EOS % 3.6 % (0-4.0); GRAN # 6.6 (1.4-6.5); GRAN % 76.9 % (42.2-75.2); HEMOGLOBIN 10.2 g/dl (13.5-18.0); LYMPH # 0.8 (1.2-3.4); LYMPH % 8.7 % (20.0-51.0); MEAN CELL VOLUME 91 fl (80.0-100.0); MEAN CORPUSCULAR HEMOGLOBIN 29 pg (27.0-31.0); MEAN CORPUSCULAR HGB CONC 32 g/dl (33.0-37.0); MEAN PLATELET VOLUME 10.9 fl (7.4-10.4); MONO # 0.8 (0.1-0.6); MONO % 9.3 % (1.7-9.3); PLATELET COUNT 145 K/mm3 (130-400); RED BLOOD COUNT 3.49 M/mm3 (4.20-5.60); REDCELL DISTRIBUTION WIDTH-CV 16.3 % (11.5-14.5)
[2019-03-26 06:59] LABS: HEMATOCRIT 31.9 % (42.0-52.0)
[2019-03-26 07:00] LABS: CALCIUM 8.2 mg/dL (8.4-10.2); CREATININE, serum 1.58 (0.66-1.25); MAGNESIUM 1.6 mg/dL (1.6-2.3); POTASSIUM 4.2 mmol/L (3.4-5.0)
--- NOTE | 2019-03-26 10:00 | NUR ---
Pt assessment complete. Pt is sitting up in bed just ate breakfast. He is A/O x3. Pt becomes very SOB when laying down and rolling. He has pain to his bottom, worsened with pericare. Small areas to bottom are red, excoriated and bleeding. Pt is incontinent of urine and bowel. Pt extremely edemetous, limbs elevated on pillows. He has no N/V. Multiple scabs and wounds throughout, see assessment. Pt denies any needs, call light within reach.
--- NOTE | 2019-03-26 19:16 | NUR ---
Pt had uneventful day. He remained A/O for a majority of the day. Rested intermittently. PRN Tylenol administered for pain to ribs and bottom. POC discussed with patient who asks multiple times to go home. No needs at this time. Call light within reach.
--- NOTE | 2019-03-26 20:40 | NUR ---
Shift assessment complete. Pt resting in bed, sleepy but easy to wake, alert, oriented to person/place c underlying confusion noted. Pt remains cooperative c cares. Pt c/o pain to buttock/back, PRN APAP admin. Mult skin tears, abrasions, scabs noted, see skin assessment. PICC noted to RUE, patent c good blood return. Tele in place. O2 per NC. Pt denies further needs at this time. Call light in reach, bed alarm on. Will continue to monitor.
[2019-03-27 03:21] VITALS: BP 98/66; PULSE 70
[2019-03-27 06:23] LABS: CALCIUM 8.1 mg/dL (8.4-10.2); CREATININE, serum 1.53 (0.66-1.25); MAGNESIUM 1.9 mg/dL (1.6-2.3); POTASSIUM 4.4 mmol/L (3.4-5.0)
[2019-03-27 07:35] VITALS: BP 103/62; PULSE 91; TEMP 97.7
[2019-03-27] MEDS ORDERED: LIPITOR 10MG10 MG PO (09:29)
[2019-03-27] MEDS ORDERED: ELIQUIS 5MG PO (09:29)
[2019-03-27] MEDS ORDERED: TOPROL XL 25MG25 MG PO (09:30)
[2019-03-27] MEDS ORDERED: ALDACTONE 25MG25 M1 PO (09:30)
[2019-03-27] MEDS ORDERED: NITROSTAT0.4 MG/TAB SL (09:36)
[2019-03-27] MEDS ORDERED: BUMEX 1MG TA1 MG/TA1 PO (09:41)
[2019-03-27] MEDS ORDERED: MICRO-GUARD21 TP (09:46)
--- NOTE | 2019-03-27 10:06 | NUR ---
The patient is to discharge today, 03/27, back to [facility] for a skilled stay. Transportation was scheduled for 1130, via [facility]. SW informed the patient's nurse and the patient's son (Ashley), via phone. They were both in agreeance. No additional needs at this time.
--- NOTE | 2019-03-27 12:05 | NUR ---
0930 Pt assessment completed and charted. Morning medications administered per SEP. Pt had breakfast, tolerated meds well. Pt has RADHA picc, flushes well with good blood return. Pt incontinent, bed change completed. Pt has multiple skin issues. Barrier cream applied to buttock, small open sore present. Redness in groin area, powder applied. Dressing on RFA saturated, changed and secured w/ soft roll. Pt c/o of scrotal and buttock pain, denies pain medication at this time. Pt denies chest pain, N/V, dizziness. Pt on 1L NC. No other concerns voiced at this time. 1200 Pt to discharge back to [facility]. Pt assisted to using gait belt. Report called to AXEL gaffney at . RADHA PICC removed prior to pt departure. No concerns reported. All questions answered. No other needs.
== END 2019-03-27 12:00 | DRG 286 ==
LOC: MEDICAL 12:20 → ICU 12:20 → UNDOADMIN 12:56 → MEDICAL 03-19 13:19
PROVIDERS: Internal Medicine; Internal Medicine Nephrology; Internal Medicine Pulmonary Disease; Nurse Practitioner Family; Physician Assistant
PROC: 02HV33Z Insertion of Infusion Device into Superior Vena Cava, Percutaneous Approach (ICD-10-PCS; 2019-03-16)
PROC: 5A09357 Assistance with Respiratory Ventilation, Less than 24 Consecutive Hours, Continuous Positive Airway Pressure (ICD-10-PCS; 2019-03-16)
PROC: B2111ZZ Fluoroscopy of Multiple Coronary Arteries using Low Osmolar Contrast (ICD-10-PCS; principal; 2019-03-24)
PROC: B2181ZZ Fluoroscopy of Left Internal Mammary Bypass Graft using Low Osmolar Contrast (ICD-10-PCS; 2019-03-24)
PROC: 4A023N7 Measurement of Cardiac Sampling and Pressure, Left Heart, Percutaneous Approach (ICD-10-PCS; 2019-03-24)
PROC: B21F1ZZ Fluoroscopy of Other Bypass Graft using Low Osmolar Contrast (ICD-10-PCS; 2019-03-24)
DX: I13.0 Hypertensive heart and chronic kidney disease with heart failure and stage 1 through stage 4 chronic kidney disease, or unspecified chronic kidney disease (principal); J96.01 Acute respiratory failure with hypoxia; I50.23 Acute on chronic systolic (congestive) heart failure; I47.2 Ventricular tachycardia; E87.1 Hypo-osmolality and hyponatremia; E87.2 Acidosis; G93.1 Anoxic brain damage, not elsewhere classified; L03.119 Cellulitis of unspecified part of limb; L97.909 Non-pressure chronic ulcer of unspecified part of unspecified lower leg with unspecified severity; Z68.41 Body mass index [BMI] 40.0-44.9, adult; R11.2 Nausea with vomiting, unspecified; I95.9 Hypotension, unspecified; I25.10 Atherosclerotic heart disease of native coronary artery without angina pectoris; E11.22 Type 2 diabetes mellitus with diabetic chronic kidney disease; E11.40 Type 2 diabetes mellitus with diabetic neuropathy, unspecified; E80.7 Disorder of bilirubin metabolism, unspecified; R53.81 Other malaise; D63.1 Anemia in chronic kidney disease; D69.6 Thrombocytopenia, unspecified; F32.9 Major depressive disorder, single episode, unspecified; I25.82 Chronic total occlusion of coronary artery; G31.9 Degenerative disease of nervous system, unspecified; B95.62 Methicillin resistant Staphylococcus aureus infection as the cause of diseases classified elsewhere; Z66 Do not resuscitate; I48.2 Chronic atrial fibrillation; E78.5 Hyperlipidemia, unspecified; R29.6 Repeated falls; R32 Unspecified urinary incontinence; N18.3 Chronic kidney disease, stage 3 (moderate); E11.51 Type 2 diabetes mellitus with diabetic peripheral angiopathy without gangrene; R80.9 Proteinuria, unspecified; N50.89 Other specified disorders of the male genital organs; G47.30 Sleep apnea, unspecified; I25.5 Ischemic cardiomyopathy; E11.65 Type 2 diabetes mellitus with hyperglycemia; E66.01 Morbid (severe) obesity due to excess calories; Z87.891 Personal history of nicotine dependence; Z95.1 Presence of aortocoronary bypass graft; Z86.74 Personal history of sudden cardiac arrest; Z79.82 Long term (current) use of aspirin; Z79.4 Long term (current) use of insulin; Z95.820 Peripheral vascular angioplasty status with implants and grafts
CPT/HCPCS: 99232-AI; 99233-AI; 99239; A4216; A9500; C1751; C1760; C1894; J0692; J0780; J1160; J1250; J1650; J1815; J2250; J2405; J2704; J2785; J3010; J3370; J3475; J7050; J7060; Q9967